=== PATIENT | male | born 1955 | race Caucasian/White ===

== ENCOUNTER 2018-10-25 06:46 | Day surgery (SDC) | payer OTHER ==
[2018-10-25 07:42] VITALS: BMI 49.4
[2018-10-25] MEDS ORDERED: TETRACAINE/BENZOCAINE/BUTAMBEN 20 GM SPR TP ONE (07:57)
[2018-10-25] MEDS ORDERED: LIDOCAINE VISCOUS 2% ORAL/TOP 20 ML UNIT-DOSE CUP ONE (08:00)
[2018-10-25] MEDS ORDERED: MIDAZOLAM HCL 2 MG/2 ML SINGLE DOSE VIAL ONE ×3 (08:00→08:07)
[2018-10-25 08:27] VITALS: TEMP 98.2
[2018-10-25 14:57] VITALS: BP 106/60; PULSE 80
--- NOTE | 2018-10-26 16:13 | PATH ---
Surgical Pathology Report Patient Name: BISMARK SCHWARZ [facility]. Rec. #: [id number] /Age/Gender: 1955 (Age: 63) / M Account: [id number] Location: U-ENDOSCOPY Taken: 10/25/2018 Received: 10/25/2018 Reported: 10/26/2018 Physicians: Iraj Charles M.D. Specimen(s) Received A: BX ANTRUM B: BX GE JUNCTION Clinical History Evaluation for bariatric surgery Postoperative diagnosis: Antral ulcer Final Diagnosis A. ANTRUM, BIOPSY: GASTRIC MUCOSA WITH ULCERATION, ACTIVE CHRONIC INFLAMMATION, AND REGENERATIVE CHANGE. REACTIVE GASTROPATHY PRESENT. IMMUNOSTAIN FOR H. PYLORI IS NEGATIVE. NEGATIVE FOR INTESTINAL METAPLASIA. B. GE JUNCTION, BIOPSY: ESOPHAGEAL MUCOSA WITH REFLUX ESOPHAGITIS. NEGATIVE FOR INTESTINAL METAPLASIA. NO HISTOLOGIC EVIDENCE OF EOSINOPHILIC ESOPHAGITIS. Electronically Signed Evelia Turner M.D. Gross Description A. Received in formalin, labeled "BX antrum" are 4 gomez, irregular portions of soft tissue measuring 0.2 and 0.3 cm. in greatest dimension. The specimens are submitted in toto in one cassette. B. Received in formalin, labeled "BX GE junction" are 3 gomez, irregular portions of soft tissue measuring 0.2 and 0.3 cm. in greatest dimension. The specimens are submitted in toto in one cassette. MLSZ/10/25/2018 sanml/10/25/2018
== END 2018-10-25 09:25 | disposition home or self-care (01) ==
LOC: JASU-ENDO 06:46
PROVIDERS: ATTEND Internal Medicine Gastroenterology
PROC: 0DB68ZX Excision of Stomach, Via Natural or Artificial Opening Endoscopic, Diagnostic (ICD-10-PCS; 2018-10-25)
PROC: 0DB48ZX Excision of Esophagogastric Junction, Via Natural or Artificial Opening Endoscopic, Diagnostic (ICD-10-PCS; principal; 2018-10-25 08:00)
DX: Z01.818 Encounter for other preprocedural examination (principal); K25.9 Gastric ulcer, unspecified as acute or chronic, without hemorrhage or perforation; E66.01 Morbid (severe) obesity due to excess calories; I10 Essential (primary) hypertension; G47.30 Sleep apnea, unspecified
CPT/HCPCS: 88305-TC; 88342-TC